=== PATIENT | female | born 1935 | race Caucasian/White ===

== ENCOUNTER 2016-10-17 12:43 | Emergency (ER) | payer BC, MEDICARE ==
[~2016-10-17 12:43] MED LIST: ALTACE2.5 MG PO; ASPIRIN EC81 MG PO; CRESTOR10 MG PO; IMDUR ER TAB 3030 MG PO; KLONOPIN TAB 00.5 MG PO; NORCO 7.5-3251 EACH PO; PLAVIX 75 MG TA75 MG PO
[2016-10-17 13:52] LABS: HEMOGLOBIN 12.2 gm/dl (12.3-15.3); RED BLOOD COUNT 4.13 M/UL (4.00-5.10)
== END 2016-10-17 16:45 | disposition home or self-care (01) ==
LOC: ER1 12:43
PROVIDERS: Family Medicine
DX: R53.1 Weakness (principal); R00.1 Bradycardia, unspecified; N39.0 Urinary tract infection, site not specified; J43.9 Emphysema, unspecified; I25.2 Old myocardial infarction; Z79.899 Other long term (current) drug therapy
CPT/HCPCS: 36415; 70450; 71010; 80053; 81001; 82550; 82553; 83874; 84443; 84484; 85025; 87077; 87086; 87186; 93005; 96374; 99284; J0696; J7040; J7050